=== PATIENT | female | born 1945 | race Caucasian/White ===

== ENCOUNTER 2018-04-27 12:36 | Emergency (ER) | payer MEDICARE, OTHER ==
[~2018-04-27] VITALS: Ht 162.6 cm; Wt 57.6 kg
[2018-04-27] MEDS ORDERED: DEXAMETHASONE4 MG PO (13:23)
[2018-04-27] MEDS ORDERED: C-10001000 MG PO (13:24)
[2018-04-27] MEDS ORDERED: FLAGYL500 MG PO (13:25)
[2018-04-27] MEDS ORDERED: FERROUS SULFAT325 MG PO (13:25)
[2018-04-27] MEDS ORDERED: CALCIUM500 MG PO (13:25)
[2018-04-27] MEDS ORDERED: GLUCAGEN1 M1 INJ (13:28)
[2018-04-27] MEDS ORDERED: LEVAQUIN500 MG PO (13:29)
[2018-04-27] MEDS ORDERED: HUMALOG100 UNIT/2 SUB-Q (13:29)
[2018-04-27] MEDS ORDERED: LEVALBUTEROL TA15 GM INH (13:29)
[2018-04-27] MEDS ORDERED: LEVOTHYROXINE75 MCG PO (13:30)
[2018-04-27] MEDS ORDERED: LISINOPRIL-HCT1 EACH PO (13:30)
[2018-04-27] MEDS ORDERED: MECLIZINE HCL25 MG PO (13:31)
[2018-04-27] MEDS ORDERED: MULTIPLE VITAM1 EAC2 PO (13:31)
[2018-04-27] MEDS ORDERED: METOPROLOL TART25 MG PO (13:31)
[2018-04-27] MEDS ORDERED: PROBIOTIC1 EAC7 PO (13:32)
[2018-04-27] MEDS ORDERED: PERCOCET 5-3251 EACH PO (13:32)
[2018-04-27] MEDS ORDERED: OMEPRAZOLE20 M1 PO (13:32)
[2018-04-27] MEDS ORDERED: TIZANIDINE HCL4 MG PO (13:33)
[2018-04-27] MEDS ORDERED: KEPPRA500 MG PO (15:42)
--- OUTSIDE RECORDS SUMMARY | 2018-04-27 16:28 | XMS ---
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 Eda has no Care Guidelines for this patient. Juan VISIT COUNT (12 MO.) [address] [facility] TOTAL 3 NOTE: Visits indicate total known visits. ED/C VISIT TRACKING (12 MO.) 04/27/2018 12:36 [facility] [place] TYPE: Emergency COMPLAINT: - SEIZURE 04/20/2018 12:49 [facility] [place] TYPE: Emergency COMPLAINT: - PERIRECTAL ABSCESS 04/08/2018 16:24 [facility] [place] TYPE: Emergency COMPLAINT: - BLOOD PRESSURE PROBLEM DIAGNOSES: - Allergy status to narcotic agent status - Allergy status to penicillin - Malignant neoplasm of unspecified part of unspecified bronchus or lung - Other manager terminal (current) drug therapy - Other insect allergy status - Bee allergy status - Cerebral edema - Allergy status to other drugs, medicaments and biological substances status INPATIENT VISIT TRACKING (12 MO.) No inpatient visits to display in this time frame [email or web address]
--- NOTE | 2018-04-27 20:50 | EKG ---
[facility] [address] [place], [place] [address] Signed Sinus rhythm with short [place] Possible Left atrial enlargement ST elevation, consider early repolarization, pericarditis, or injury Abnormal ECG No previous ECGs available Confirmed by DENY DURAN DO ([id number]) on 04/27/2018 8:49:49 PM Electronically Signed By: DENY DURAN DO 04/27/182049 PATIENT NAME: HUMBERTO MARSHALL Electrocardiogram DATE OF : 43 PHYSICIAN: DENY DURAN DO REPORT #: [id number] REPORT IS CONFIDENTIAL AND NOT TO BE RELEASED WITHOUT AUTHORIZATION
== END 2018-04-27 16:27 | disposition home or self-care (01) ==
LOC: EDBD 12:36 → ED 12:36
DX: R56.9 Unspecified convulsions (principal); C71.9 Malignant neoplasm of brain, unspecified; I10 Essential (primary) hypertension; F17.200 Nicotine dependence, unspecified, uncomplicated; Z88.0 Allergy status to penicillin; Z88.5 Allergy status to narcotic agent; Z88.8 Allergy status to other drugs, medicaments and biological substances; Z79.899 Other long term (current) drug therapy
CPT/HCPCS: 70450; 71045; 80053; 83605; 85025; 93005; 93010; 96365; 96366; 96375; 99285; J1100; J1953; J2405